=== PATIENT | female | born 1995 ===

== ENCOUNTER 2017-12-23 18:07 | Emergency (ER) | payer SELFPAY ==
[2017-12-23 18:07] VITALS: BMI 21.1
[2017-12-23] MEDS ORDERED: Lactated Ringer's 1,000 ML IV STA (19:04)
[2017-12-23 19:50] LABS: ALBUMIN 3.9 g/dL (3.5-5.0); ALT/SGPT 22 U/L (9-52); AST/SGOT 20 U/L (14-36); BASO % 0.3 % (0.0-2.0); BLOOD UREA NITROGEN 8 mg/dl (7-17); CALCIUM 8.7 mg/dL (8.4-10.2); EOS # 0.1 K/uL (0.0-0.7); EOS % 0.5 % (0.0-4.0); GFR AFRICAN-AMERICAN > 60; GFR NON-AFRICAN AMERICAN > 60; HEMOGLOBIN 13.1 g/dL (12.0-16.0); LIPASE 26 U/L (23-300); LYMPH # 1.2 K/uL (1.0-4.3); LYMPH % 7.7 % (20.0-40.0); MEAN CELL VOLUME 89.2 fl (81.0-99.0); MEAN CORPUSCULAR HEMOGLOBIN 30.9 pg (27.0-31.0); MEAN CORPUSCULAR HGB CONC 34.6 g/dL (33.0-37.0); MEAN PLATELET VOLUME 8.1 fl (7.2-11.7); MONO % 6.1 % (0.0-10.0); NEUT # 13.7 K/uL (1.8-7.0); NEUT % 85.4 % (50.0-75.0); PLATELET COUNT 286 K/uL (130-400); RBC 4.25 Mil/uL (3.80-5.20); RED CELL DISTRIBUTION WIDTH 13.5 % (11.5-14.5); WHITE BLOOD COUNT 16.1 K/uL (4.8-10.8)
--- NOTE | 2017-12-23 20:01 | ED PDOC ---
HPI: Abdomen Time Seen by Provider: 12/23/17 18:57 Chief Complaint (Nursing): Abdominal Pain Chief Complaint (Provider): Abdominal Pain History Per: Patient History/Exam Limitations: no limitations Onset/Duration Of Symptoms: Hrs (since 15:00 today), Gradual Current Symptoms Are (Timing): Still Present Additional Complaint(s): 22 year old female presents to the ED with complaints of gradual onset pelvic pain that radiates to the entire abdomen associated with two episodes of non bilious non bloody vomiting, and one episode non bloody diarrhea beginning earlier today at 15:00. Patient denies any urinary symptoms, vaginal bleeding / discharge, fever, and chills. She notes that her LNMP was 1 1/2 months ago and is unsure if she is or not. PMD: none provided Past Medical History Reviewed: Historical Data, Nursing Documentation, Vital Signs Vital Signs: Last Vital Signs Temp 98 F 12/24/17 00:50 Pulse 66 12/24/17 00:50 Resp 16 12/24/17 00:50 BP 101/65 12/24/17 00:50 Pulse Ox 100 12/24/17 00:50 - Medical History PMH: Gastritis - Surgical History Surgical History: Appendectomy - Family History Family History: States: No Known Family Hx - Social History Current smoker - smoking cessation education provided: No Alcohol: None Drugs: Denies - Immunization History Hx Tetanus Toxoid Vaccination: No Hx Influenza Vaccination: Yes Hx Pneumococcal Vaccination: No - Home Medications Home Medications: Ambulatory Orders Medication Instructions Recorded Docusate [Colace] 100 mg PO DAILY #1 cap 07/17/16 Dicyclomine [Bentyl] 20 mg PO QID PRN #20 tab 12/24/17 Ondansetron ODT [Zofran ODT] 1 odt PO Q6 PRN #20 odt 12/24/17 - Allergies Allergies/Adverse Reactions: Allergies Allergy/AdvReac Type Severity Reaction Status Date / Time No Known Allergies Allergy Verified 12/23/17 18:16 Review of Systems ROS Statement: Except As Marked, All Systems Reviewed And Found Negative Constitutional: Negative for: Fever, Chills Gastrointestinal: Positive for: Vomiting (non bilious, non bloody), Abdominal Pain (gradual onset pelvic pain radiating to entire abdomen), Diarrhea (non bloody) Genitourinary Female: Negative for: Dysuria, Frequency, Incontinence, Vaginal Discharge, Vaginal Bleeding Physical Exam - Reviewed Nursing Documentation Reviewed: Yes Vital Signs Reviewed: Yes - Physical Exam Appears: Positive for: Uncomfortable, In Acute Distress Head Exam: Positive for: ATRAUMATIC, NORMOCEPHALIC Skin: Positive for: Warm, Dry Eye Exam: Positive for: EOMI, PERRL ENT: Negative for: Pharyngeal Erythema, Tonsillar Exudate Neck: Positive for: Painless ROM, Supple Cardiovascular/Chest: Positive for: Regular Rate, Rhythm. Negative for: Murmur Respiratory: Positive for: Normal Breath Sounds. Negative for: Respiratory Distress Gastrointestinal/Abdominal: Positive for: Tenderness (diffuse to palpation; more exquisite tenderness to midline suprapubic area). Negative for: Mass, Guarding, Rebound Back: Positive for: Normal Inspection. Negative for: Decreased ROM Extremity: Positive for: Normal ROM. Negative for: Deformity Neurologic/Psych: Positive for: Alert. Negative for: Motor/Sensory Deficits - Laboratory Results Result Diagrams: 12/23/17 19:30 12/23/17 19:30 - ECG O2 Sat by Pulse Oximetry: 100 (RA) Pulse Ox Interpretation: Normal - Progress Re-evaluation Time: 21:48 Condition: Re-examined, Improved Medical Decision Making Medical Decision Making: Initial Impression: abdominal pain Ddx include but are not limited to: ovarian cyst rupture, torsion, urinary tract infection, enteritis, colitis, fibroid Time: 19:04 Initial Plan: --Type and screen --Beta-HCG --Lipase --Urine --Urine dipstick --CBC with differential --Lactated Ringers 1000ml IV --Morphine 2mg IVP --Zofran 4mg IVP --Transvag US Leukocytosis on labs, otherwise no clinically significant lab abnormalities. 21:31 TRANSVAG US FINDINGS: Uterus/cervix: Very small cystic space in the endometrial canal which is nonspecific. No myometrial mass. Endometrial stripe measures 1.2 cm in thickness. Right ovary: Unremarkable. No mass. Normal blood flow. Left ovary: Unremarkable. No mass. Normal blood flow. Free fluid: No free fluid. IMPRESSION: Very small cystic space in the endometrial canal which is nonspecific. No test results were provided and correlation with test is recommended. 2130 On reevaluation pt feels better. No episodes of vomiting or diarrhea in ER. Will PO challenge. 2200 Pt reports pain recurred with eating. CT ordered. CT ABD/PELVIS FINDINGS: Lower thorax: The visualized portions of the lung bases are normal. ABDOMEN: Liver: There are no focal liver lesions identified. Gallbladder and bile ducts: The gallbladder is normal. There is no evidence of biliary ductal dilation. No calcified stones. Pancreas: The pancreas appears normal. No ductal dilation. Spleen: The spleen is normal. Adrenals: The adrenal glands are normal. Kidneys and ureters: There are multiple renal hypodensities that cannot be further characterized on the current examination. No hydronephrosis. Stomach and bowel: There is nonspecific small bowel wall thickening suspicious for enteritis in the appropriate clinical setting. The stomach is normal. The colon is normal. Appendix: No findings to suggest acute appendicitis. PELVIS: Bladder: The bladder is normal. Reproductive: The uterus is normal. ABDOMEN and PELVIS: Intraperitoneal space: There is a small amount of free pelvic fluid present. No free air. Bones/joints: No acute fracture. No dislocation. Soft tissues: Unremarkable. Vasculature: Unremarkable. No abdominal aortic aneurysm. Lymph nodes: Unremarkable. No enlarged lymph nodes. IMPRESSION: There is nonspecific small bowel wall thickening suspicious for enteritis in the appropriate clinical setting 0030 On reevaluation pt comfortable. Pain improved. DW pt findings and plan of care. Rest, bland diet, fluids, f/u clinic, rter for worsening symptoms. Scribe Attestation: Documented by Rebecca Rosado, acting as a scribe for Lynn Carrero MD. Provider Scribe Attestation: All medical entries made by the Scribe were at my direction and personally dictated by me. I have reviewed the chart and agree that the record accurately reflects my personal performance of the history, physical exam, medical decision making, and the department course for this patient. I have also personally directed, reviewed, and agree with the discharge instructions and disposition. Disposition - Clinical Impression Clinical Impression: Gastroenteritis Counseled Patient/Family Regarding: Studies Performed, Diagnosis, Need For Followup, Rx Given - Disposition Referrals: [facility] [Outside] - 12/24/17 ([facility] A [facility] DE NUEVO EN 2-3 BEGUM.) Disposition: Routine/Home Disposition Time: 00:32 Condition: IMPROVED Prescriptions: Dicyclomine [Bentyl] 20 mg PO QID PRN #20 tab PRN Reason: abdominal pain Ondansetron ODT [Zofran ODT] 1 odt PO Q6 PRN #20 odt PRN Reason: Nausea/Vomiting Instructions: Gastroenteritis (ED) Print Language: SCOTTISH
[2017-12-23 20:09] LABS: LYMPHOCYTE 9 % (20-50); MONOCYTE 2 % (0-10); NEUTROPHIL 89 % (42-75); PLATELET ESTIMATE NORMAL (NORMAL); TOTAL CELLS COUNTED 100
[2017-12-23 21:23] LABS: SQUAMOUS EPITHIAL 2 /hpf (0-5); URINE BILIRUBIN NEGATIVE (NEGATIVE); URINE BLOOD NEGATIVE (NEGATIVE); URINE CLARITY SLIGHTY-CLOUDY (Clear); URINE COLOR YELLOW (YELLOW); URINE GLUCOSE (UA) NEG (Normal); URINE LEUKOCYTE ESTERASE NEG Leu/uL (Negative); URINE PROTEIN 30 mg/dL (NEGATIVE)
[2017-12-23 22:27] VITALS: O2SAT 100
[2017-12-23] MEDS ORDERED: Sodium Chloride 0.9% 50 ML IV ONE (23:09)
[2017-12-23] MEDS ORDERED: Iohexol 300 100 ML IJ ONE (23:09)
[2017-12-24 00:52] VITALS: BP 101/65; PULSE 66; RESP 16; TEMP 98
--- NOTE | 2017-12-24 09:53 | CT ---
PROCEDURE: CT Abdomen and Pelvis with contrast HISTORY: pelvic pain leukocytosis COMPARISON: None. TECHNIQUE: Contrast dose: 8 mL Omnipaque 300 Radiation dose: Total exam DLP = 196 mGy-cm. This CT exam was performed using one or more of the following dose reduction techniques: Automated exposure control, adjustment of the mA and/or kV according to patient size, and/or use of iterative reconstruction technique. FINDINGS: LOWER THORAX: Unremarkable. LIVER: Unremarkable. No gross lesion or ductal dilatation. GALLBLADDER AND BILE DUCTS: Unremarkable. PANCREAS: Unremarkable. No gross lesion or ductal dilatation. SPLEEN: Unremarkable. ADRENALS: Unremarkable. No mass. KIDNEYS AND URETERS: Approximately 1 cm right upper renal pole 9 appearing cysts. Even smaller left lower renal pole appearing cyst suggested as well. No hydronephrosis. No solid mass. VASCULATURE: Unremarkable. No aortic aneurysm. BOWEL: The small bowel loops have borderline minimal meter circumferential mural thickening. -can be seen with mild enteritis. No obstruction. No gross colonic mural thickening. APPENDIX: The very thin tubular structure in the right lower abdomen series 2 image 49, may be a collapsed portion of the distal small bowel as the clinical history reports patient having had prior appendectomy greater than 6 months ago. PERITONEUM: There is moderate free fluid in the pelvis - can be physiologic given patient's 22 years of age and the bilateral adnexal/ ovarian inferred fullness. . No free air. LYMPH NODES: Unremarkable. No enlarged lymph nodes. BLADDER: Unremarkable. REPRODUCTIVE: Unremarkable uterus. Bilateral adnexal hypodense small fullness probably relating to ovarian physiologic changes. BONES: No acute fracture. OTHER FINDINGS: None. IMPRESSION: Small bowel appearance can be seen with mild enteritis -correlate clinically. No bowel obstruction -small or large bowel. No free air. No diverticulitis. History of prior appendectomy. No collections appreciated. Moderate free fluid in the pelvis . Clinical follow-up recommended. Given history of leukocytosis and pelvic pain Concordant results (preliminary interpretation) provided by [employer].
--- NOTE | 2017-12-24 14:07 | US ---
HISTORY: pelvic pain sharp sudden r/o torsion COMPARISON: None available. TECHNIQUE: Transvaginal FINDINGS: UTERUS: Measures 7.9 x 5.2 x 4.3 cm. Normal in size. No fibroid or other mass lesion seen. There is tiny matted intrauterine cavity fluid 0.6 x 0.4 x 0.3 mm corresponding to a volume of 0.04 mL. ENDOMETRIUM: Measures 12 mm in diameter. CERVIX: No cervical abnormality identified. RIGHT OVARY: Measures 3.1 x 2.6 x 2.3 cm. No solid mass. Normal flow. LEFT OVARY: Measures 2.7 x 2.0 x 1.9 cm. No solid mass. Normal flow. FREE FLUID: No significant free fluid noted. OTHER FINDINGS: None. IMPRESSION: Trace fluid and/or trace cystic collection within the intrauterine cavity -nonspecific. Correlation with beta HCG levels as a very early cannot be excluded Concordant results (preliminary interpretation) provided by [employer].
== END 2017-12-24 01:00 | disposition home or self-care (01) ==
LOC: H.ER 18:07
DX: K52.9 Noninfective gastroenteritis and colitis, unspecified (principal)
CPT/HCPCS: 74177; 76830; 80053; 81003; 81025; 83690; 84702; 85025; 86850; 86900; 87086; 96361; 96374; 99285; J2405; J7120; Q9967

== ENCOUNTER 2017-12-26 03:43 | Emergency (ER) | payer SELFPAY ==
[2017-12-26 03:43] VITALS: BMI 21.1
[2017-12-26] MEDS ORDERED: Penicillin G Benzathine 1.2 Mill Unit/2 ml Syr IM ONE (04:36)
--- NOTE | 2017-12-26 04:41 | ED PDOC ---
HPI: CCC, URI, Sore Throat Time Seen by Provider: 12/26/17 04:19 Chief Complaint (Nursing): ENT Problem History Per: Patient History/Exam Limitations: no limitations Additional Complaint(s): 22 yo F presents c/o throat pain and swelling x 6 days with fever for the past few days, reports taking 1 dose of amoxicillin tonight without relief. Otherwise : (-) cough, (-) URI, (-) rash, (-) chest pain, (-) SOB, (-) headache , (-) N/V/D, (-) abdominal pain, (-) urinary symptoms, (-) recent travel, (-) sick contacts. Past Medical History Vital Signs: Last Vital Signs Temp 98.4 F 12/26/17 05:19 Pulse 74 12/26/17 05:19 Resp 17 12/26/17 05:19 BP 104/60 12/26/17 05:19 Pulse Ox 99 12/26/17 05:19 - Medical History PMH: Gastritis - Surgical History Surgical History: Appendectomy - Family History Family History: States: Unknown Family Hx - Immunization History Hx Tetanus Toxoid Vaccination: No Hx Influenza Vaccination: Yes Hx Pneumococcal Vaccination: No - Home Medications Home Medications: Ambulatory Orders Medication Instructions Recorded Docusate [Colace] 100 mg PO DAILY #1 cap 07/17/16 Dicyclomine [Bentyl] 20 mg PO QID PRN #20 tab 12/24/17 Ondansetron ODT [Zofran ODT] 1 odt PO Q6 PRN #20 odt 12/24/17 Ibuprofen [Motrin Tab] 600 mg PO QID PRN #20 tab 12/26/17 Mag&Al/Simet/Diphen/Lido [First 5 ml MM TID #1 kit 12/26/17 Magic Mouthwash] - Allergies Allergies/Adverse Reactions: Allergies Allergy/AdvReac Type Severity Reaction Status Date / Time No Known Allergies Allergy Verified 12/23/17 18:16 Review of Systems Constitutional: Negative for: Fever, Malaise ENT: Positive for: Throat Pain, Throat Swelling. Negative for: Nose Pain, Nose Discharge Cardiovascular: Negative for: Chest Pain, Palpitations Respiratory: Negative for: Cough, Shortness of Breath Gastrointestinal: Negative for: Vomiting, Abdominal Pain, Diarrhea Genitourinary Female: Negative for: Dysuria, Frequency Skin: Negative for: Rash, Lesions Physical Exam - Physical Exam Appears: Positive for: Well, Non-toxic, In Acute Distress (mild painful distress , speaking in full sentences, no drooling, no trismus) Head Exam: Positive for: ATRAUMATIC, NORMAL INSPECTION, NORMOCEPHALIC Skin: Positive for: Normal Color, Warm, DRY Eye Exam: Positive for: EOMI, Normal appearance, PERRL ENT: Positive for: TM Is/Are (wnl with no erythema), Pharyngeal Erythema, Tonsillar Swelling, Other (uvula midline). Negative for: Sinus Pain/Drainage Neck: Positive for: Normal, Painless ROM Cardiovascular/Chest: Positive for: Regular Rate, Rhythm Respiratory: Positive for: Normal Breath Sounds. Negative for: Rales, Rhonchi, Wheezing Back: Positive for: Normal Inspection Extremity: Positive for: Normal ROM Neurologic/Psych: Positive for: Alert, internet developer II-XII, Oriented (x3). Negative for : Motor/Sensory Deficits - ECG O2 Sat by Pulse Oximetry: 100 Medical Decision Making Medical Decision Making: Impression : pharyngitis Plan : - PCN benzathine IM - Decadron IM - Motrin PO Diagnosis of pharyngitis d/w the patient. Tolerating po fluids. Based on history, exam and diagnostic results, plan will be for outpatient follow up. Patient instructed to follow-up with the clinic in 1-2 days without fail. Advised to take medication as prescribed. Return to the emergency room at any time for any new or worsening symptoms. Patient states she fully agrees with and understands discharge instructions. States that she agrees with the plan and disposition. Verbalized and repeated discharge instructions and plan. I have given the patient opportunity to ask any additional questions. Disposition - Clinical Impression Clinical Impression: Pharyngitis - Patient ED Disposition Is Patient to be Admitted: No Counseled Patient/Family Regarding: Diagnosis, Need For Followup, Rx Given - Disposition Referrals: [facility] [Outside] Disposition: Routine/Home Disposition Time: 04:45 Condition: STABLE Additional Instructions: Thank you for letting us take care of you today. You were treated for pharyngitis. The emergency medical care you received today was directed at your acute symptoms. If you were prescribed any medication, please fill it and take as directed. It may take several days for your symptoms to resolve. Return to the Emergency Department if your symptoms worsen, do not improve, or if you have any other problems. Please call one of the physicians/clinics you have been referred to that are listed on the Patient Visit Information form that is included in your discharge packet. Bring any paperwork you were given at discharge with you along with any medications you are taking to your follow up visit. Our treatment cannot replace ongoing medical care by a primary care provider (PCP) outside of the emergency department. Thank you for allowing the [facility] team to be part of your care today. 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
[2017-12-26 05:25] VITALS: BP 104/60; PULSE 74; RESP 17; TEMP 98.4
[2017-12-26 05:30] VITALS: O2SAT 100
== END 2017-12-26 05:21 | disposition home or self-care (01) ==
LOC: H.ER 03:43
DX: J02.9 Acute pharyngitis, unspecified (principal)
CPT/HCPCS: 81025; 96372; 99282; J0561; J1100